=== PATIENT | male | born 1985 | race Caucasian/White ===

== ENCOUNTER 2021-04-28 23:32 | Emergency (ER) | payer OTHER ==
[2021-04-29 00:07] LABS: HEMOGLOBIN 13.5 gm/dl (14.0-17.5); RED BLOOD COUNT 4.61 M/UL (4.20-5.50); WHITE BLOOD COUNT 7.8 K/UL (4.5-11.0)
[2021-04-29 00:29] LABS: BUN/CREATININE RATIO 9 (0-10)
== END 2021-04-29 04:00 | disposition home or self-care (01) ==
LOC: ER1 23:32
PROVIDERS: Physician Assistant
DX: R07.2 Precordial pain (principal); R06.02 Shortness of breath; F15.10 Other stimulant abuse, uncomplicated; Z20.822 Contact with and (suspected) exposure to COVID-19; F17.210 Nicotine dependence, cigarettes, uncomplicated
CPT/HCPCS: 0240U; 71045; 80053; 80307; 81001; 82550; 82553; 83735; 83874; 83880; 84439; 84443; 84484; 85025; 85379; 85610; 85730; 87086; 93005; 99285